=== PATIENT | male | born 1960 | race Caucasian/White ===

== ENCOUNTER 2017-06-26 05:51 | Day surgery (SDC) | payer MEDICAID ==
[2017-06-26] MEDS ORDERED: ceFAZolin 2 GM/SWFI 2 GM/20 ML SYR IVP ONE ×2 (06:00)
[2017-06-26] MEDS ORDERED: ceFAZolin 2 GM/DEXTROSE 100 ML IV ONE (06:00)
[2017-06-26] MEDS ORDERED: LR 1,000 ML IV ONE (06:14)
[2017-06-26 06:27] VITALS: PULSE 59
--- NOTE | 2017-06-26 06:29 | PDGENHP ---
History and Physical - Chief Complaint bothersome sternal wires - History of Present Illness 57 yo slender male with prominent and tender sternal wire ends s/p tissue AVR with ascending aortic replacement in August 2015 here for removal of hardware. Describes significant contact discomfort when carrying a pack or bulky items. No breakdown of incision or erosion of wires. No functional limitations. History Information - Allergies/Home Medication List Allergies/Adverse Reactions: No Known Allergies Allergy (Verified 06/26/17 06:39) Home Medications: Loratadine/Pseudoephedrine [Claritin-D 24 Hour Tablet] 1 each PO DAILY PRN 09/19 [Last Taken 04/27/17] Flonase Nasal Blossom 06/13/17 [Last Taken 06/23/17] I have personally reviewed and updated: medical history, surgical history - Past Medical History atrial fibrillation (postop), Crohn's Disease Additional medical history: bicuspid aortic valve with aneursymal asc aorta. 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 hepatic hemangiomas - Surgical History Additional surgical history: Tissue AVR with asc ao replacement 09/21/15. Postop left thoracentesis - Social History Smoking Status: Never smoked Review of Systems Review of Systems: ROS: 10pt was reviewed & negative except for what was stated in HPI & below Physical Exam Physical Exam: Temp Pulse Resp BP Pulse Ox 36.5 C 59 L 16 117/73 97 06/26/17 06:15 06/26/17 06:15 06/26/17 06:15 06/26/17 06:15 06/26/17 06:15 Constitutional: no apparent distress, appears nourished Eyes: icteric sclera Ears, Nose, Mouth, Throat: moist mucous membranes Cardiovascular: regular rate and rhythym, other (Median sternotomy well healed scar. 2 readily visible and palpable wires proximally and distally.) Respiratory: no respiratory distress, clear to auscultation Gastrointestinal: soft, non-tender abdomen Skin: warm, normal color Neurologic: other (symmetric tone) Psychiatric: interacting appropriately, not anxious Assessment & Plan Assessment: Painful orthopaedic hardware (Acute) Plan: Removal of sternal wires Consents per Dr Patel
[2017-06-26] MEDS ORDERED: MIDAZOLAM 2 MG/2 ML VIAL ONE (07:07)
[2017-06-26] MEDS ORDERED: MIDAZOLAM 2 MG/2 ML VIAL IVP ONE (07:08)
--- NOTE | 2017-06-26 07:11 | PDANEPAE ---
ANE History of Present Illness Patient presents for Sternal Wire removal ANE Past Medical History - Cardiovascular History Hx Hypertension: No Hx Arrhythmias: Yes Hx Chest Pain: No Hx Coronary Artery / Peripheral Vascular Disease: Yes Hx CHF / Valvular Disease: No Hx Palpitations: No Cardiovascular History Comment: HX ATRIAL FIB. BICUSPID AORTIC VALVE - Pulmonary History Hx COPD: No Hx Asthma/Reactive Airway Disease: No Hx Recent Upper Respiratory Infection: No Hx Oxygen in Use at Home: No Hx Sleep Apnea: No Sleep Apnea Screening Result - Last Documented: Positive Pulmonary History Comment: PNEUMOTHORAX- DURING CARDIAC SURGERY - Neurologic History Hx Cerebrovascular Accident: No Hx Seizures: No Hx Dementia: No - Endocrine History Hx Diabetes: No - Renal History Hx Renal Disorders: No - Liver History Hx Hepatic Disorders: No - Neurological & Psychiatric Hx Hx Neurological and Psychiatric Disorders: No - Cancer History Hx Cancer: No - Congenital Disorder History Hx Congenital Disorders: No - GI History Hx Gastrointestinal Disorders: Yes Gastrointestinal History Comment: CHRONS - NO RECENT SXS. IBS - Other Health History Other Health History: NEG - Chronic Pain History Chronic Pain: No - Surgical History Prior Surgeries: AVR - 09/20/2015. ASCENDING AORTA GRAFT W/CORONARY RECONSTRUCTION. APPENDECTOMY. CHEST TUBE FOR PNEUMOTHORAX. THORACENTESIS ANE Review of Systems Review of Systems: - Exercise capacity METS (RN): 5 METS ANE Patient History - Allergies Allergies/Adverse Reactions: No Known Allergies Allergy (Verified 06/26/17 06:39) - Home Medications Home Medications: Loratadine/Pseudoephedrine [Claritin-D 24 Hour Tablet] 1 each PO DAILY PRN 09/19 [Last Taken 04/27/17] Flonase Nasal [place]tyre 06/13/17 [Last Taken 06/23/17] - NPO status NPO Since - Liquids (Date): 06/25/17 NPO Since - Liquids (Time): 19:00 NPO Since - Solids (Date): 06/25/17 NPO Since - Solids (Time): 21:00 - Anes Hx Anes Hx: no prior problems - Smoking Hx Smoking Status: Never smoked - Family Anes Hx Family Hx Anesthesia Complications: NEG ANE Labs/Vital Signs - Vital Signs Blood Pressure: 117/73 Heart Rate: 59 Respiratory Rate: 16 O2 Sat (%): 97 Height: 182.88 cm Weight: 70.76 kg ANE Physical Exam - Airway Neck exam: FROM Mallampati Score: Class 1 Mouth exam: normal dental/mouth exam - Pulmonary Pulmonary: no respiratory distress - Cardiovascular Cardiovascular: regular rate and rhythym - ASA Status ASA Status: III ANE Anesthesia Plan Anesthesia Plan: general endotracheal anesthesia (GA, ett RBA discussed)
[2017-06-26] MEDS ORDERED: SUCCINYLCHOLINE CHLORIDE 200 MG/10 ML SYR IVP ONE (07:13)
[2017-06-26] MEDS ORDERED: PROPOFOL 200 MG/20 ML VIAL ONE (07:13)
[2017-06-26] MEDS ORDERED: fentaNYL 100 MCG/2 ML INJ ONE ×2 (07:13→08:37)
[2017-06-26] MEDS ORDERED: LIDOCAINE 2% 5 ML SDV ONE (07:13)
[2017-06-26] MEDS ORDERED: BUPIVACAINE 0.25% 30 ML SDV ONE (07:14)
[2017-06-26] MEDS ORDERED: DEXAMETHASONE 4 MG/ML VIAL ONE (07:44)
[2017-06-26] MEDS ORDERED: ONDANSETRON 4 MG/2 ML VIAL ONE (07:44)
[2017-06-26] MEDS ORDERED: LR 500 ML IV PRN (08:18)
[2017-06-26] MEDS ORDERED: OXYCODONE/APAP 5/325 TAB PO PRN (08:18)
[2017-06-26] MEDS ORDERED: HYDROCODONE/APAP 5/325 TAB PO PRN (08:18)
[2017-06-26] MEDS ORDERED: NALOXONE HCL 0.4 MG/ML INJ IVP PRN (08:18)
[2017-06-26] MEDS ORDERED: ONDANSETRON 4 MG/2 ML VIAL IVP PRN (08:18)
--- NOTE | 2017-06-26 08:18 | POSTANESTH ---
Post Anesthetic Evaluation Cardiovascular Status: Similar to Pre-Op Cond Respiratory Status: Similar to Pre-op Cond. Level of Consciousness/Mental Status: Can Participate in Eval Pain Control: Adequate, Prn Tx Ordered Nausea/Vomiting Control: Adequate, Prn Tx Ordered Complications Possibly Related to Anesthesia: None Noted
[2017-06-26] MEDS ORDERED: KETOROLAC 15 MG/1 ML SDV IVP ONE (08:30)
[2017-06-26] MEDS: fentaNYL 100 MCG/2 ML INJ IVP PRN ×2 (08:37→08:46)
[2017-06-26] MEDS ORDERED: KETOROLAC 15 MG/1 ML SDV ONE (08:48)
[2017-06-26] MEDS ORDERED: traMADol 50 MG TAB PO PRN (09:00)
[2017-06-26 09:27] VITALS: RESP 12
[2017-06-26 10:01] VITALS: BP 121/86; O2SAT 94
[2017-06-26 10:25] VITALS: TEMP 97.9
== END 2017-06-26 10:19 | disposition home or self-care (01) ==
LOC: FSGY 05:51
PROVIDERS: ATTEND Thoracic Surgery (Cardiothoracic Vascular Surgery)
PROC: 0PP004Z Removal of Internal Fixation Device from Sternum, Open Approach (ICD-10-PCS; principal; 2017-06-26 07:15)
DX: T84.84XA Pain due to internal orthopedic prosthetic devices, implants and grafts, initial encounter (principal); Y79.3 Surgical instruments, materials and orthopedic devices (including sutures) associated with adverse incidents; R07.89 Other chest pain; Z95.2 Presence of prosthetic heart valve; H90.42 Sensorineural hearing loss, unilateral, left ear, with unrestricted hearing on the contralateral side
CPT/HCPCS: J0171; J0330; J0690; J1100; J1885; J2250; J2405; J2704; J3010